=== PATIENT | female | born 1975 | race Caucasian/White ===

== ENCOUNTER 2019-05-26 07:00 | Outpatient (CLI) | payer OTHER | END 2019-05-26 10:00 | disposition home or self-care (01) | LOC: RAD 07:00 | DX: Z12.31 Encounter for screening mammogram for malignant neoplasm of breast (principal); R19.01 Right upper quadrant abdominal swelling, mass and lump; N60.11 Diffuse cystic mastopathy of right breast; N60.12 Diffuse cystic mastopathy of left breast; Z87.898 Personal history of other specified conditions; Z09 Encounter for follow-up examination after completed treatment for conditions other than malignant neoplasm ==

== ENCOUNTER 2019-05-26 10:50 | Outpatient (CLI) | payer OTHER | END 2019-05-26 11:24 | disposition home or self-care (01) | LOC: LAB 10:50 | DX: N20.0 Calculus of kidney (principal) ==

== ENCOUNTER 2024-06-29 14:14 | Outpatient (CLI) | payer OTHER | END 2024-06-29 14:21 | disposition home or self-care (01) | LOC: MRI 14:14 | PROVIDERS: ATTEND Obstetrics & Gynecology | DX: M54.50 Low back pain, unspecified (principal); M51.16 Intervertebral disc disorders with radiculopathy, lumbar region | CPT/HCPCS: 72158 ==